=== PATIENT | female | born 1995 | race Caucasian/White ===

== ENCOUNTER 2018-04-14 12:28 | Inpatient (IN) ==
--- NOTE | 2018-04-14 13:32 | ED ---
HPI General Chief Complaint: Extremity Injury, Upper Stated Complaint: finger injury Time Seen by Provider: 04/14/18 13:11 History of Present Illness HPI narrative: The patient was seen and examined in the presence of the nurse. This patient was seen by Dr. Ron of hand surgery today. She has redness swelling discomfort centered about the PIP joint of the left fifth finger. Duration is 3 days. She was told to come to the emergency room and have surgery by Dr. Vanegas. She presents with a prescription detailing a preoperative workup and I have ordered that as Dr. Ron has recommended. Symptom severity is moderate. Her pain is worse with movement. She denies fever she denies any recent injury. 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 No alleviating factors. Related Data Home Medications Medication Instructions Recorded Confirmed No Known Home Medications 04/14/18 04/14/18 Allergies Allergy/AdvReac Type Severity Reaction Status Date / Time No Known Allergies Allergy Verified 04/14/18 13:27 Review of Systems ROS: all other systems reviewed are negative [facility] Medical History Medical History Patient denies medical problems (Acute) Surgical History Surgical History Hx of hand surgery (Acute) Hx of shoulder surgery (Acute) Social History Social History Second Hand Smoke Exposure: No Smoking Status: Never smoker How Often Do You Have a Drink Containing Alcohol: 2 to 4 times a month Recent Travel in [facility] within the Last 8 Weeks: No Recent Out of Country Travel within the Last 8 Weeks: No Immunization History Tetanus Immunization: <5 Years Exam Narrative Exam Narrative: GENERAL: Well-nourished, well-developed patient in no apparent distress. SKIN: Focused skin assessment reveals no rash and nodules. Skin is Warm and dry. HEAD: Atraumatic. Normocephalic. EYES: Pupils equal and round. No scleral icterus. No injection or drainage. ENT: No nasal bleeding or discharge. Mucous membranes pink and moist. NECK: Trachea midline. No JVD. CARDIOVASCULAR: Regular rate and rhythm. No murmur appreciated. RESPIRATORY: No accessory muscle use. Clear to auscultation. Breath sounds equal bilaterally. GASTROINTESTINAL: Abdomen soft, non-tender, nondistended. Hepatic and splenic margins not palpable. MUSCULOSKELETAL: Left fifth finger shows boutonniere deformity. There is a healed scar on the lateral aspect of the finger. There is erythema swelling and tenderness centered about the PIP joint. There is a central tiny area of purulence. No clubbing. No cyanosis. No edema. NEUROLOGICAL: Awake and alert. No obvious cranial nerve deficits. Motor grossly within normal limits. Normal speech. PSYCHIATRIC: Appropriate mood and affect; insight and judgment normal. Course Initial Documented Vital Signs Temperature 98.0 F 04/14/18 12:40 Pulse Rate 52 L 04/14/18 12:40 Respiratory Rate 18 04/14/18 12:40 Blood Pressure 114/62 04/14/18 12:40 Pulse Oximetry 99 04/14/18 12:40 Last Documented Vital Signs Temperature 98.0 F 04/14/18 12:40 Pulse Rate 50 L 04/14/18 18:47 Respiratory Rate 16 04/14/18 18:47 Blood Pressure 106/63 04/14/18 18:47 Pulse Oximetry 100 04/14/18 13:54 Medical Decision Making MDM Narrative Medical decision making narrative: 30-year-old female with looks to be an infectious process at the left fifth finger PIP joint. She has been seen by hand surgery and sent here to be evaluated by Dr. Vanegas. I have ordered the recommended preoperative workup which include labs and x-ray. CBC, sed rate, CRP with no acute findings. X-ray of the finger shows soft tissue swelling. Discussed with Dr. Vanegas who stated that she would come to the emergency department to evaluate patient. Dr. Vanegas will admit patient to her service. Patient will be started on vancomycin. She had an MRI of the hand ordered. MRI shows again soft tissue swelling. Patient was admitted under observation. Please see Dr. Vanegas's notes. Patient is agreeable to stay at this time however she did state that she may want to leave A and then come back for antibiotic therapy. Patient requested pain medication for pain in her finger after Dr. Vanegas aspirated fluid. Patient was given Percocet p.o. x1 dose. Medical Screen Exam Complete: Yes Emergency Medical Condition: Yes Differential Diagnosis Differential Diagnosis: Cellulitis versus abscess versus osteomyelitis versus other Lab Data Lab results reviewed: Yes I reviewed the patient's lab results. Result diagrams: 04/14/18 13:50 Lab Results 04/14/18 04/14/18 04/14/18 Range/Units 13:50 13:50 13:50 WBC 7.7 (4.0-11.0) th/mm3 RBC 4.36 (4.00-5.30) mil/mm3 Hgb 13.7 (11.6-15.3) gm/dL Hct 40.2 (35.0-46.0) % MCV 92.0 (80.0-100.0) fL MCH 31.4 (27.0-34.0) pg MCHC 34.1 (32.0-36.0) % RDW 12.7 (11.6-17.2) % Plt Count 148 L (150-450) th/mm3 MPV 10.7 (7.0-11.0) fL Neut % (Auto) 75.8 H (16.0-70.0) % Lymph % (Auto) 16.9 (9.0-44.0) % [place] % (Auto) 6.6 (0.0-8.0) % Eos % (Auto) 0.3 (0.0-4.0) % Baso % (Auto) 0.4 (0.0-2.0) % Neut # (Auto) 5.9 (1.8-7.7) th/mm3 Lymph # (Auto) 1.3 (1.0-4.8) th/mm3 [place] # (Auto) 0.5 (0.0-0.9) th/mm3 Eos # (Auto) 0.0 (0.0-0.4) th/mm3 Baso # (Auto) 0.0 (0.0-0.2) th/mm3 WBC Differential . Differential Comment Auto diff final ESR 2 (0-20) mm/hr C-Reactive Protein Less than 0.29 (0.00-0.30) mg/dL Beta HCG, Quant (0-5) mIU/mL 04/14/18 Range/Units 13:50 WBC (4.0-11.0) th/mm3 RBC (4.00-5.30) mil/mm3 Hgb (11.6-15.3) gm/dL Hct (35.0-46.0) % MCV (80.0-100.0) fL MCH (27.0-34.0) pg MCHC (32.0-36.0) % RDW (11.6-17.2) % Plt Count (150-450) th/mm3 MPV (7.0-11.0) fL Neut % (Auto) (16.0-70.0) % Lymph % (Auto) (9.0-44.0) % [place] % (Auto) (0.0-8.0) % Eos % (Auto) (0.0-4.0) % Baso % (Auto) (0.0-2.0) % Neut # (Auto) (1.8-7.7) th/mm3 Lymph # (Auto) (1.0-4.8) th/mm3 [place] # (Auto) (0.0-0.9) th/mm3 Eos # (Auto) (0.0-0.4) th/mm3 Baso # (Auto) (0.0-0.2) th/mm3 WBC Differential Differential Comment ESR (0-20) mm/hr C-Reactive Protein (0.00-0.30) mg/dL Beta HCG, Quant Less than 1 (0-5) mIU/mL Imaging Data Radiologist's impression: Finger X-Ray 04/14/18 13:26 CONCLUSION: 1. Nonspecific soft tissue swelling involving the fifth PIP joint. 2. Healed fracture involving the fifth proximal phalanx. 3. Single remaining internal fixation screw in the fifth proximal phalanx. Hand MRI 04/14/18 15:38 CONCLUSION: 1. Focal fluid collection in the soft tissues adjacent to the distal diametaphysis of the proximal phalanx of the fifth digit. No signal abnormality in the marrow of the fifth digit. There is also dorsal soft tissue swelling about the fifth digit adjacent to the proximal and mid phalanx. Discharge Plan Discharge Disposition Patient Disposition: ED Admit(ED Internal Use Only) Discharge Condition Condition: Stable Discharge Order Discharge Orders: ED Use Only Admit Order (Routine); Ordered 04/14/18 Ordered By: Taty Hlobrook Discharge Details Diagnosis: Cellulitis Physicians Team ED Provider: Tre Sam ED Midlevel Provider: Taty Holbrook Primary Care Provider: UNKNOWN, Attending Provider: Marielos Vanegas Other Providers: Dorothy,Krissy Status ED Status: Admitted Observation Patient
[2018-04-14 14:19] LABS: Baso % (Auto) 0.4 % (0.0-2.0); Eos % (Auto) 0.3 % (0.0-4.0); Hematocrit 40.2 % (35.0-46.0); Hemoglobin 13.7 gm/dL (11.6-15.3); Lymph # (Auto) 1.3 th/mm3 (1.0-4.8); Lymph % (Auto) 16.9 % (9.0-44.0); Mean Corpuscular HGB Conc 34.1 % (32.0-36.0); Mean Corpuscular Hemoglobin 31.4 pg (27.0-34.0); Mean Platelet Volume 10.7 fL (7.0-11.0); Mono # (Auto) 0.5 th/mm3 (0.0-0.9); Mono % (Auto) 6.6 % (0.0-8.0); Neut # (Auto) 5.9 th/mm3 (1.8-7.7); Neut % (Auto) 75.8 % (16.0-70.0); Platelet Count 148 th/mm3 (150-450); Red Blood Count 4.36 mil/mm3 (4.00-5.30); Red Cell Distribution Width 12.7 % (11.6-17.2); White Blood Count 7.7 th/mm3 (4.0-11.0)
--- NOTE | 2018-04-14 14:54 | XR ---
EXAM DATE: 04/14/2018 2:41 PM EST AGE/SEX: 22 years / Female INDICATIONS: Joint pain. Patient states she has had surgery to that finger before for a fracture fro m volleyball. Patient states it is painful, red, hot and throbbing. CLINICAL DATA: This is the patient's initial encounter. Patient reports that signs and symptoms have been present for 2 days and indicates a pain score of 10/10. MEDICAL/SURGICAL HISTORY: None. . Left 5th digit surgery over past 2 years. COMPARISON: [facility], XR FINGER 5TH DIGIT (MIN 2 VIEWS), LEFT, 12/06/2016. . FINDINGS: Today's examination is compared to the prior study. The prior study demonstrated an oblique fracture through the fifth proximal phalanx. On today's examination the fracture is healed. There is a single internal fixation screw remaining. There is diffuse soft tissue swelling at the PIP joint. No acute f racture or joint dislocation is demonstrated. No other radiopaque foreign bodies are demonstrated. CONCLUSION: 1. Nonspecific soft tissue swelling involving the fifth PIP joint. 2. Healed fracture involving the fifth proximal phalanx. 3. Single remaining internal fixation screw in the fifth proximal phalanx. Electronically signed by: Brad Jauregui MD Board Certified Radiologist 04/14/2018 2:53 PM EST
--- NOTE | 2018-04-14 16:54 | MR ---
EXAM DATE: 04/14/2018 4:38 PM EST AGE/SEX: 22 years / Female INDICATIONS: . Left 5th digit swelling and redness with no known injury. CLINICAL DATA: This is the patient's initial encounter. Patient reports that signs and symptoms have been present for 1 week and indicates a pain score of 5/10. MEDICAL/SURGICAL HISTORY: None. . shoulder surgery, left 5th digit of hand surgery COMPARISON: [facility], FINGER LEFT 5TH DIGIT MIN 2V, 04/14/2018. . TECHNIQUE: Multiplanar, multisequence MRI examination was performed without contrast. FINDINGS: Conventional radiographs demonstrate evidence of prior internal fixation with removal of hardware dis abdi one half of the fifth proximal phalanx with a residual internal fixation pin in the mid shaft of the proximal phalanx. There is a focal fluid collection on the palm are aspect of the distal one thir d of the proximal phalanx and moderate dorsal soft tissue thickening with T2 prolongation; this fluid collection measures 7 mm long and 4 mm deep.. There is T1 prolongation in the marrow of the distal o ne third of the proximal phalanx at site of prior surgery. No signal abnormality in the distal or mid dle phalanx. CONCLUSION: 1. Focal fluid collection in the soft tissues adjacent to the distal diametaphysis of the proximal p halanx of the fifth digit. No signal abnormality in the marrow of the fifth digit. There is also dors al soft tissue swelling about the fifth digit adjacent to the proximal and mid phalanx. Electronically signed by: Romeo Espinal MD Board Certified Radiologist 04/14/2018 4:53 PM EST
[2018-04-14] MEDS ORDERED: Acetaminophen 325 MG Tablet PO PRN (18:32)
[2018-04-14] MEDS: Vancomycin Inj 1,000 MG in Sodium Chlor 0.9% Inj 250 ML IV.SIG SCH (18:43)
--- NOTE | 2018-04-14 19:31 | P.HPOP ---
History of Present Illness Service: ORtho Primary Care Physician: UNKNOWN History of Present Illness: 22yF approximately 1 year s/p ORIF left 5th proximal phalanx fracture now approximately 2 months s/p hardware removal and tenolysis presented to office today with erythema left 5th PIP joint. Seen by my partner Dr Ron as I was in surgery at [place]. Patient reports 1 day of worsening erythema and swelling. Patient did have some mild erythema 2 weeks ago but refused oral antibiotics at that time. Denies paresthesias. Reports persistent stiffness. - Diagnosis (1) Cellulitis and abscess of hand Estimated Total Length of Stay (Days): 3 Review of Systems All other systems reviewed negative except as stated in HPI Constitutional: Denies anorexia, Denies body ache(s), Denies chills, Denies daytime sleepiness, Denies excessive sweating, Denies fatigue, Denies fever(s), Denies headache(s), Denies increased appetite, Denies lack of energy, Denies malaise, Denies night sweats, Denies weakness, Denies weight gain, Denies weight loss, Denies other Eyes: Denies blind spots, Denies blurry vision, Denies bulging eyes, Denies change in vision, Denies double vision, Denies discharge, Denies dry eyes, Denies floaters, Denies irritation, Denies itchy eyes, Denies loss of vision, Denies pain, Denies requires corrective lenses, Denies sensitivity to light, Denies other Ears, Nose, Mouth, and Throat: Denies abnormal hearing, Denies bleeding gums, Denies bad breath, Denies change in voice, Denies dental pain, Denies difficulty swallowing, Denies dizziness, Denies dry mouth, Denies ear discharge , Denies ear pain, Denies facial pain, Denies headache(s), Denies hearing loss, Denies hoarseness, Denies lip swelling, Denies nosebleed, Denies mouth lesions, Denies mouth pain, Denies nasal congestion, Denies nasal discharge, Denies nasal obstruction, Denies nasal trauma, Denies neck lump, Denies neck pain, Denies nose pain, Denies pain with swallowing, Denies poor balance, Denies post nasal drip, Denies ringing in the ears, Denies sinus pain, Denies sinus pressure , Denies sore throat, Denies throat swelling, Denies tongue swelling, Denies other Cardiovascular: Denies chest pain, Denies chest pain at rest, Denies chest pain with activity, Denies excessive sweating, Denies fainting, Denies fast heart rate, Denies foot swelling, Denies generalized swelling, Denies irregular heart rhythm, Denies leg pain with activity, Denies leg sores, Denies leg swelling, Denies lightheadedness, Denies radiating jaw, neck or arm pain, Denies rapid, pounding, or irregular heartbeat, Denies shortness of breath, Denies shortness of breath with activity, Denies shortness of breath when lying down, Denies shortness of breath causing sudden awakening, Denies slow heart rate, Denies other Respiratory: Denies change in phlegm color, Denies chest congestion, Denies cough, Denies coughing up blood, Denies excessive phlegm production, Denies pain on inspiration, Denies pain with cough, Denies shortness of breath, Denies shortness of breath with activity, Denies snoring, Denies stridor, Denies wheezing, Denies other Gastrointestinal: Denies abdominal pain, Denies belching, Denies black, tarry stools, Denies bloating, Denies bright, red blood in stools, Denies change in bowel habits, Denies constant urge to pass stool, Denies change in stools, Denies coffee ground vomit, Denies constipation, Denies cramping, Denies difficulty swallowing, Denies excessive passing of gas, Denies feeling full early, Denies heartburn, Denies incontinent of stools, Denies loose stools, Denies nausea, Denies pain with swallowing, Denies vomiting, Denies vomiting blood, Denies other Genitourinary: Denies abnormal periods, Denies abnormal vaginal bleeding, Denies absent period, Denies bleeding between periods, Denies blood in urine, Denies difficulty starting urination, Denies difficulty urinating, Denies dribbling after urination, Denies frequent nighttime urination, Denies genital itching, Denies genital lesions, Denies heavy periods, Denies hot flashes, Denies light periods, Denies nipple discharge, Denies painful intercourse, Denies painful periods, Denies painful urination, Denies pelvic pain, Denies prolapse symptoms, Denies sexual problems, Denies side pain, Denies urinary incontinence, Denies urinary urgency, Denies vaginal discharge, Denies vaginal dryness, Denies vaginal odor, Denies vaginal itching, Denies other Musculoskeletal: Reports joint pain, Reports joint swelling, Reports limited joint movement Skin/Breast: Denies acne, Denies bleeding lesions, Denies boil, Denies breast swelling, Denies breast skin changes, Denies breast pain, Denies breast lump, Denies change in breast shape, Denies change in hair, Denies change in skin color, Denies changing lesions, Denies dry skin, Denies excessive hair growth, Denies hair loss, Denies itching, Denies lesions, Denies nail changes, Denies new lesions, Denies nipple discharge, Denies non-healing lesions, Denies redness , Denies sensitivity to light, Denies rash, Denies skin pain, Denies skin ulcer , Denies sores, Denies stretch mota, Denies unusual bruising, Denies wounds, Denies yellowing of the skin, Denies other Neurologic: Denies abnormal hearing, Denies abnormal movements, Denies abnormal speech, Denies abnormal walking, Denies behavioral changes, Denies burning sensations, Denies confusion, Denies dizziness, Denies fainting, Denies frequent falls, Denies headache(s), Denies lack of coordination, Denies localized weakness, Denies loss of vision, Denies memory loss, Denies numbness, Denies other visual disturbances, Denies radiating pain, Denies restless legs, Denies convulsions, Denies seizure-like activity, Denies sensory deficit, Denies tingling, Denies tingling/numbness/burning sensations, Denies tremor(s), Denies unsteadiness, Denies weakness, Denies other Psychiatric: Denies abnormal sleep pattern, Denies anxiety, Denies behavioral changes, Denies change in appetite, Denies change in sex drive, Denies confusion , Denies depression, Denies difficulty concentrating, Denies hearing things others do not hear, Denies hopelessness, Denies irritability, Denies lack of enjoyment, Denies memory loss, Denies mood swings, Denies panic attacks, Denies paranoia, Denies seeing things others do not see, Denies sensing things others do not sense, Denies tactile hallucinations, Denies thoughts of hurting/killing others, Denies thoughts of hurting/killing yourself, Denies other Endocrine: Denies cold intolerance, Denies excessive sweating, Denies flushing, Denies heat intolerance, Denies increased hunger, Denies increased thirst, Denies increased urination, Denies rapid, pounding, or irregular heartbeat, Denies other Hematologic/Lymphatic: Denies easy bleeding, Denies easy bruising, Denies enlarged lymph nodes, Denies other Allergic/Immunologic: Denies GI upset with certain foods, Denies hives, Denies itchy eyes, Denies lip swelling, Denies seasonal runny nose, Denies throat swelling, Denies tongue swelling, Denies wheezing, Denies other PMFSH - History History Provided By: Patient - Medical History Medical History: Medical History (Last Updated 04/14/18 @ 20:33 by Marielos Vanegas MD) Patient denies medical problems (Acute) - Surgical History Surgical History: Surgical History (Last Reviewed 04/14/18 @ 20:33 by Marielos Vanegas MD) Hx of hand surgery (Acute) Hx of shoulder surgery (Acute) - Social History I have reviewed the patient's Social History: Yes - Tobacco History Second Hand Smoke Exposure: No Smoking Status: Never smoker - Alcohol History How Often Do You Have a Drink Containing Alcohol: 2 to 4 times a month - Travel History Recent Travel in the [place] Within the Last 8 Weeks: No Recent Travel Out of the Country Within the Last 8 Weeks: No - Immunization History Tetanus Immunization: <5 Years Medications and Allergies Active Medications: Active Medications Acetaminophen (Tylenol) 650 mg PO Q4H PRN PRN Reason: Temp > 100.4 Vancomycin HCl 1,000 mg/ (Sodium Chloride) 250 mls @ 250 mls/hr IV.SIG Q12H LUIS ENRIQUE Stop: 04/15/18 07:59 Ondansetron HCl (Zofran Inj) 4 mg IV.PUSH Q6H PRN PRN Reason: NAUSEA OR VOMITING Senna/Docusate Sodium (Isabel-Colace) 1 tab PO BID LUIS ENRIQUE Sennosides (Senokot) 17.2 mg PO Q12H PRN PRN Reason: Moderate Constipation Allergies Allergy/AdvReac Type Severity Reaction Status Date / Time No Known Allergies Allergy Verified 04/14/18 13:27 Home Medications Medication Instructions Recorded Confirmed Type No Known Home Medications 04/14/18 04/14/18 History Exam Vital signs: Vital Signs 04/14/18 12:40 04/14/18 13:54 Temperature 98.0 F Pulse Rate 52 L 53 L Respiratory Rate 18 16 Blood Pressure 114/62 110/62 Pulse Oximetry 99 100 Intake & Output 04/13/18 04/14/18 04/14/18 18:59 06:59 18:59 Weight 81.647 kg Narrative: Alert and oriented. Heart regular rate. Lungs clear to auscultation. Healed incision left small finger. Erythema left small finger. No pain with passive range of motion PIP joint. Flexed posture left small finger. <2 sec capillary refill , sitlt radial and ulnar sides. function intact fds/fdp. no pain along flexor tendon sheath Results - Labs Result Diagrams: 04/14/18 13:50 Labs: Laboratory Results - last 24 hr 04/14/18 04/14/18 04/14/18 13:50 13:50 13:50 WBC 7.7 RBC 4.36 Hgb 13.7 Hct 40.2 MCV 92.0 MCH 31.4 MCHC 34.1 RDW 12.7 Plt Count 148 L MPV 10.7 Neut % (Auto) 75.8 H Lymph % (Auto) 16.9 [place] % (Auto) 6.6 Eos % (Auto) 0.3 Baso % (Auto) 0.4 Neut # (Auto) 5.9 Lymph # (Auto) 1.3 [place] # (Auto) 0.5 Eos # (Auto) 0.0 Baso # (Auto) 0.0 WBC Differential . Differential Comment Auto diff final ESR 2 C-Reactive Protein Less than 0.29 Beta HCG, Quant 04/14/18 13:50 WBC RBC Hgb Hct MCV MCH MCHC RDW Plt Count MPV Neut % (Auto) Lymph % (Auto) [place] % (Auto) Eos % (Auto) Baso % (Auto) Neut # (Auto) Lymph # (Auto) [place] # (Auto) Eos # (Auto) Baso # (Auto) WBC Differential Differential Comment ESR C-Reactive Protein Beta HCG, Quant Less than 1 - Diagnostic results Imaging: Impressions Finger X-Ray 04/14/18 13:26 CONCLUSION: 1. Nonspecific soft tissue swelling involving the fifth PIP joint. 2. Healed fracture involving the fifth proximal phalanx. 3. Single remaining internal fixation screw in the fifth proximal phalanx. Hand MRI 04/14/18 15:38 CONCLUSION: 1. Focal fluid collection in the soft tissues adjacent to the distal diametaphysis of the proximal phalanx of the fifth digit. No signal abnormality in the marrow of the fifth digit. There is also dorsal soft tissue swelling about the fifth digit adjacent to the proximal and mid phalanx. Caprini VTE Risk Assessment Caprini Risk Assessment Model: Point Value = 1 Point Value = 2 Point Value = 3 Point Value = 5 Age 41-60 Minor surgery BMI > 25 kg/m2 Swollen legs Varicose veins or History of unexplained or recurrent spontaneous Oral contraceptives or hormone replacement Sepsis (< 1 month) Serious lung disease, including pneumonia (< 1 month) Abnormal pulmonary function Acute myocardial infarction Congestive heart failure (< 1 month) History of inflammatory bowel disease Medical patient at bed rest Age 61-74 Arthroscopic surgery Major open surgery (> 45 min) Laparoscopic surgery (> 45 min) Malignancy Confined to bed (> 72 hours) Immobilizing plaster cast Central venous access Age >= 75 History of VTE Family history of VTE Factor V Leiden Prothrombin [id number] Lupus anticoagulant Anticardiolipin antibodies Elevated serum homocysteine Heparin-induced thrombocytopenia Other congenital or acquired thrombophilia Stroke (< 1 month) Elective arthroplasty Hip, pelvis, or leg fracture Acute spinal cord injury (< 1 month) Prophylaxis Regimen: Total Risk Factor Score Risk Level Prophylaxis Regimen 0-1 Low Early ambulation 2 Moderate Order ONE of the following: *Sequential Compression Device (SCD) *Heparin 5000 units SQ BID 3-4 Higher Order ONE of the following medications: *Heparin 5000 units SQ TID *Enoxaparin/Lovenox 40 mg SQ daily (WT < 150 kg, CrCl > 30 mL/min) *Enoxaparin/Lovenox 30 mg SQ daily (WT < 150 kg, CrCl > 10-29 mL/min) *Enoxaparin/Lovenox 30 mg SQ BID (WT < 150 kg, CrCl > 30 mL/min) AND/OR *Sequential Compression Device (SCD) 5 or more Highest Order ONE of the following medications: *Heparin 5000 units SQ TID (Preferred with Epidurals) *Enoxaparin/Lovenox 40 mg SQ daily (WT < 150 kg, CrCl > 30 mL/min) *Enoxaparin/Lovenox 30 mg SQ daily (WT < 150 kg, CrCl > 10-29 mL/min) *Enoxaparin/Lovenox 30 mg SQ BID (WT < 150 kg, CrCl > 30 mL/min) AND *Sequential Compression Device (SCD) Assessment and Plan - Problem List (1) Cellulitis and abscess of hand Code(s): L03.119 - Cellulitis of unspecified part of limb; L02.519 - Cutaneous abscess of unspecified hand Status: Acute - Assessment and Plan 22yF approximately 1 year s/p ORIF left proximal phalanx now 2 months s/p hardware removal and tenolysis now 1 day history of erythema and swelling PIP joint. -ESR, CRP WNL -Aspiration small amount of fluid pending for culture -Admit for IV antibiotics and ID consult -MRI shows small amount of fluid volar to but not involving PIP joint but no osteomyelitis and no abscess dorsally per radiologist -Possible I&D in OR tonight vs AM depending on OR availability -Discussed with patient importance of compliance with antibiotics
[2018-04-14] MEDS ORDERED: Senna/Docusate Sodium 8.6/50 MG Tablet PO SCH (21:00)
[2018-04-15] MEDS: HYDROmorphone PF Inj 0.5 MG/0.5 ML Syringe IV.PUSH PRN ×3 (00:03→22:55)
[2018-04-15] MEDS: ceFAZolin 2 GM Premix Inj 2 GM/50 ML PIGGYBACK IV.SIG SCH ×4 (00:03→18:02)
[2018-04-15] MEDS ORDERED: Chlorhexidine Gluconate 2% 1 Pack (2 Cloths) TOPICAL ONE (06:28)
[2018-04-15] MEDS ORDERED: Sodium Chlor 0.9% Inj 500 ML IV.SIG SCH (07:00)
[2018-04-15] MEDS: Vancomycin Inj 1,000 MG in Sodium Chlor 0.9% Inj 250 ML IV.SIG SCH (07:00)
--- NOTE | 2018-04-15 11:36 | P.PNOP ---
Subjective Interval history: Patient reports improvement in pain and swelling after IV antibiotics. She did feel flushed with vancomycin Physical Exam Vital signs: Vital Signs 04/14/18 12:40 04/14/18 13:54 04/14/18 18:47 Temperature 98.0 F Pulse Rate 52 L 53 L 50 L Respiratory Rate 18 16 16 Blood Pressure 114/62 110/62 106/63 Pulse Oximetry 99 100 04/14/18 19:33 04/14/18 20:50 04/14/18 23:50 Temperature 97.9 F 97.2 F L Pulse Rate 48 L 55 L Respiratory Rate 18 17 16 Blood Pressure 106/52 L 100/58 L Pulse Oximetry 100 99 04/15/18 03:30 04/15/18 04:00 04/15/18 08:00 Temperature 97.6 F 96.8 F L Pulse Rate 50 L 60 Respiratory Rate 16 16 14 Blood Pressure 109/55 L 106/53 L Pulse Oximetry 100 96 04/15/18 08:20 Temperature Pulse Rate Respiratory Rate 14 Blood Pressure Pulse Oximetry Intake & Output 04/14/18 04/15/18 04/15/18 18:59 06:59 18:59 Intake Total 1350 / 1350 250 / 250 Balance 1350 / 1350 250 / 250 Weight 81.647 kg 84.7 kg Intake: IV 350 / 350 250 / 250 Vancomycin Inj 1,000 MG In NS 250 / 250 250 / 250 Inj 250 ML @ 250 mls/hr IV.SIG Q12H LUIS ENRIQUE Rx#:[id number] Ancef 2 GM Premix Inj 2 gm In 100 / 100 50 ml @ 100 mls/hr IV.SIG Q8H LUIS ENRIQUE Rx#:[id number] Oral 1000 / 1000 Other: # Voids 2 # Bowel Movements 0 Weight On Admission 83.5 kg - Routine Extremities Exam Comments: Improving erythema over finger, minimal pain with passive range of motion, pustule dorsally over PIP joint, sitlt radial and ulnar sides, <2 sec capillary refill Results - Labs CBC & Chem 7: 04/14/18 13:50 Laboratory Results - last 24 hr 04/14/18 04/14/18 04/14/18 13:50 13:50 13:50 WBC 7.7 RBC 4.36 Hgb 13.7 Hct 40.2 MCV 92.0 MCH 31.4 MCHC 34.1 RDW 12.7 Plt Count 148 L MPV 10.7 Neut % (Auto) 75.8 H Lymph % (Auto) 16.9 [place] % (Auto) 6.6 Eos % (Auto) 0.3 Baso % (Auto) 0.4 Neut # (Auto) 5.9 Lymph # (Auto) 1.3 [place] # (Auto) 0.5 Eos # (Auto) 0.0 Baso # (Auto) 0.0 WBC Differential . Differential Comment Auto diff final ESR 2 C-Reactive Protein Less than 0.29 Beta HCG, Quant 04/14/18 13:50 WBC RBC Hgb Hct MCV MCH MCHC RDW Plt Count MPV Neut % (Auto) Lymph % (Auto) [place] % (Auto) Eos % (Auto) Baso % (Auto) Neut # (Auto) Lymph # (Auto) [place] # (Auto) Eos # (Auto) Baso # (Auto) WBC Differential Differential Comment ESR C-Reactive Protein Beta HCG, Quant Less than 1 Microbiology 04/14/18 18:03 Tissue - Arm Gram Stain - Final - Imaging Impressions Finger X-Ray 04/14/18 13:26 CONCLUSION: 1. Nonspecific soft tissue swelling involving the fifth PIP joint. 2. Healed fracture involving the fifth proximal phalanx. 3. Single remaining internal fixation screw in the fifth proximal phalanx. Hand MRI 04/14/18 15:38 CONCLUSION: 1. Focal fluid collection in the soft tissues adjacent to the distal diametaphysis of the proximal phalanx of the fifth digit. No signal abnormality in the marrow of the fifth digit. There is also dorsal soft tissue swelling about the fifth digit adjacent to the proximal and mid phalanx. Assessment and Plan - Assessment and Plan 22yF approximately 1 year s/p ORIF left proximal phalanx now 2 months s/p hardware removal and tenolysis now 1 day history of erythema and swelling PIP joint. -ESR, CRP WNL -Aspiration small amount of fluid pending for culture -MRI shows small amount of fluid volar to but not involving PIP joint but no osteomyelitis and no abscess dorsally per radiologist -Still awaiting ID consult, recommended Vancomycin last night -Scheduled for OR at 9:30 this am but currently delayed due to traumas. Still awaiting OR for I&D -Discussed with patient importance of compliance with antibiotics. Patient states she would like to leave hospital today -Patient planning trip to [place] which I do not recommend at this time. Will see in office this week after discharge prior to planned trip
[2018-04-15] MEDS ORDERED: Glycopyrrolate Inj 1 MG/5 ML Syringe IV.PUSH ONE (13:27)
[2018-04-15] MEDS ORDERED: Ketorolac Inj 30 MG/ML (IVP) Vial IV.PUSH ONE (13:27)
[2018-04-15] MEDS ORDERED: Lidocaine PF 1% Inj 5 ML Syringe INFILTRATN ONE (13:27)
[2018-04-15] MEDS ORDERED: Neomycin/Polymyxin G.U. Irrigant 1 ML Ampul ONE ×2 (13:40→14:54)
[2018-04-15] MEDS ORDERED: Lidocaine 2% Inj 50 ML Vial ONE (13:43)
--- NOTE | 2018-04-15 13:56 | P.CONID ---
History of Present Illness Service: ID Consult date: 04/15/18 Requesting Physician: Marielos Vanegas Reason for Consult: L small finger Primary Care Provider: UNKNOWN History of Present Illness: 22 yo F with no past med history broke her L small finger playing voleyball required repair with hardware 2 yrs ago POst op uneventfully as far as infections but developped contracture and 2 mos ago some of the hardware was removed She was doing fine untill 3 days ago when she presented with swelling and redness over prox 5th finger knuckle SHe denies fever and chills She fluid from collection wwas aspirated Gstain negative clx P MR w/o osteo she is going to I+D today She still has residual hardware Review of Systems All other systems reviewed negative except as stated in HPI PMFSH - History History Provided By: Patient - Medical History Medical History: Medical History (Last Reviewed 04/15/18 @ 13:42 by Krissy De La Cruz MD) Patient denies medical problems (Acute) - Surgical History Surgical History: Surgical History (Last Reviewed 04/15/18 @ 13:42 by Krissy De La Cruz MD) Hx of hand surgery (Acute) Hx of shoulder surgery (Acute) - Social History I have reviewed the patient's Social History: Yes - Tobacco History Second Hand Smoke Exposure: No Tobacco Use In Past 30 Days: No Smoking Status: Never smoker - Alcohol History How Often Do You Have a Drink Containing Alcohol: 2 to 4 times a month - Substance Use History Substance History: No History of Abuse - Travel History Recent Travel in the [place] Within the Last 8 Weeks: No Recent Travel Out of the Country Within the Last 8 Weeks: No - Immunization History Tetanus Immunization: <5 Years Hx Influenza Vaccine This Season: No Medications and Allergies Active Medications: Active Medications Hydrocodone Bitart/Acetaminophen ([place] 5/325) 1 tab PO Q4H PRN PRN Reason: Acute Pain Diphenhydramine HCl (Benadryl) 25 mg PO Q6H PRN PRN Reason: ALLERGIC REACTION Last Admin: 04/15/18 06:28 Dose: 25 mg Hydromorphone HCl (Dilaudid Pf Inj) 0.5 mg IV.PUSH ONCE PRN PRN Reason: SEVERE BREAKTHROUGH PAIN Last Admin: 04/15/18 00:03 Dose: 0.5 mg Lactated Ringer's (Lr 1000 Ml Inj) 1,000 mls @ 30 mls/hr IV.SIG .Q24H LUIS ENRIQUE Stop: 04/16/18 06:29 Sodium Chloride (Ns Inj) 500 mls @ 30 mls/hr IV.SIG .Q10H LUIS ENRIQUE Ondansetron HCl (Zofran Inj) 4 mg IV.PUSH Q6H PRN PRN Reason: NAUSEA OR VOMITING Sennosides (Senokot) 17.2 mg PO Q12H PRN PRN Reason: Moderate Constipation Allergies Allergy/AdvReac Type Severity Reaction Status Date / Time No Known Allergies Allergy Verified 04/14/18 13:27 Home Medications Medication Instructions Recorded Confirmed Type No Known Home Medications 04/14/18 04/14/18 History Exam Vital signs: Vital Signs 04/14/18 13:54 04/14/18 18:47 04/14/18 19:33 Temperature Pulse Rate 53 L 50 L Respiratory Rate 16 16 18 Blood Pressure 110/62 106/63 Pulse Oximetry 100 04/14/18 20:50 04/14/18 23:50 04/15/18 03:30 Temperature 97.9 F 97.2 F L 97.6 F Pulse Rate 48 L 55 L 50 L Respiratory Rate 17 16 16 Blood Pressure 106/52 L 100/58 L 109/55 L Pulse Oximetry 100 99 100 04/15/18 04:00 04/15/18 08:00 04/15/18 08:20 Temperature 96.8 F L Pulse Rate 60 Respiratory Rate 16 14 14 Blood Pressure 106/53 L Pulse Oximetry 96 04/15/18 12:00 Temperature 97.7 F Pulse Rate 58 L Respiratory Rate 14 Blood Pressure 95/60 L Pulse Oximetry 97 Intake & Output 04/14/18 04/15/18 04/15/18 18:59 06:59 18:59 Intake Total 1350 / 1350 300 / 300 Balance 1350 / 1350 300 / 300 Weight 81.647 kg 84.7 kg Intake: IV 350 / 350 300 / 300 Vancomycin Inj 1,000 MG In NS 250 / 250 250 / 250 Inj 250 ML @ 250 mls/hr IV.SIG Q12H LUIS ENRIQUE Rx#:[id number] Ancef 2 GM Premix Inj 2 gm In 100 / 100 50 / 50 50 ml @ 100 mls/hr IV.SIG Q8H LUIS ENRIQUE Rx#:[id number] Oral 1000 / 1000 Other: # Voids 2 # Bowel Movements 0 Weight On Admission 83.5 kg - Constitutional no acute distress, average body habitus - Routine HEENT Exam Head: Present: normocephalic, atraumatic Eye: Present: EOMI, scleral injection ENT: Present: mucous membranes moist, oropharynx clear - Routine Neck Exam Absent: JVD, lymphadenopathy - Routine Respiratory Exam Present: CTA bilaterally. Absent: respiratory distress - Routine Cardiovascular Exam Present: RRR, S1, S2. Absent: murmur, gallop, rubs - Routine Abdominal Exam Present: soft, normoactive bowel sounds. Absent: tenderness, distended, organomegaly - Routine Extremities Exam Absent: cyanosis, clubbing, edema Comments: STATUS LOCALIS: R hand w/o edema, erythem except for middle and proximal phalnx of 5 th finger There is tense fluid collection over middle phalanx + erythem + tenderness well healed incision on prox phallanx no lymphedema or lymphadenopathy - Routine Skin Exam Present: warm. Absent: dry, rash - Routine Neurological Exam Present: alert, oriented X3, CN II-XII intact. Absent: sensory deficit, motor deficit - Routine Psychiatric Exam Present: normal affect, cooperative, good judgment Results - Labs CBC & Chem 7: 04/14/18 13:50 Labs: Laboratory Results - last 24 hr 04/14/18 04/14/18 04/14/18 13:50 13:50 13:50 WBC 7.7 RBC 4.36 Hgb 13.7 Hct 40.2 MCV 92.0 MCH 31.4 MCHC 34.1 RDW 12.7 Plt Count 148 L MPV 10.7 Neut % (Auto) 75.8 H Lymph % (Auto) 16.9 [place] % (Auto) 6.6 Eos % (Auto) 0.3 Baso % (Auto) 0.4 Neut # (Auto) 5.9 Lymph # (Auto) 1.3 [place] # (Auto) 0.5 Eos # (Auto) 0.0 Baso # (Auto) 0.0 WBC Differential . Differential Comment Auto diff final ESR 2 C-Reactive Protein Less than 0.29 Beta HCG, Quant Vancomycin Trough 04/14/18 04/15/18 13:50 11:35 WBC RBC Hgb Hct MCV MCH MCHC RDW Plt Count MPV Neut % (Auto) Lymph % (Auto) [place] % (Auto) Eos % (Auto) Baso % (Auto) Neut # (Auto) Lymph # (Auto) [place] # (Auto) Eos # (Auto) Baso # (Auto) WBC Differential Differential Comment ESR C-Reactive Protein Beta HCG, Quant Less than 1 Vancomycin Trough 12.2 H - Imaging Impressions Finger X-Ray 04/14/18 13:26 CONCLUSION: 1. Nonspecific soft tissue swelling involving the fifth PIP joint. 2. Healed fracture involving the fifth proximal phalanx. 3. Single remaining internal fixation screw in the fifth proximal phalanx. Hand MRI 04/14/18 15:38 CONCLUSION: 1. Focal fluid collection in the soft tissues adjacent to the distal diametaphysis of the proximal phalanx of the fifth digit. No signal abnormality in the marrow of the fifth digit. There is also dorsal soft tissue swelling about the fifth digit adjacent to the proximal and mid phalanx. Assessment and Plan - Plan Infecrted 5 th L finger, abscess, a/w hardware LIkely infected hardware Even w/o clinical or radiological osteo will Rx with prolonger abx use 2/2 retained hardware Suggest to remove hardware if feasible' fu clx will follow op report and cultures for further abxc rec anticipate 6 wks of IV abx op clx including AFB and fungal dw Dr Vanegas
[2018-04-15] MEDS ORDERED: *morphine SULFATE 4 MG/ML PERIprocedure ONLY ONE (15:59)
[2018-04-15] MEDS ORDERED: fentaNYL Citrate Inj 100 MCG/2 ML Ampul ONE (16:05)
--- NOTE | 2018-04-15 16:13 | P.PNOP ---
Subjective Interval history: Patient reports pain controlled. Attempted to talk to family postoperatively but no one in waiting room or room and sister didn't answer phone. Physical Exam Vital signs: Vital Signs 04/14/18 18:47 04/14/18 19:33 04/14/18 20:50 Temperature 97.9 F Pulse Rate 50 L 48 L Respiratory Rate 16 18 17 Blood Pressure 106/63 106/52 L Pulse Oximetry 100 04/14/18 23:50 04/15/18 03:30 04/15/18 04:00 Temperature 97.2 F L 97.6 F Pulse Rate 55 L 50 L Respiratory Rate 16 16 16 Blood Pressure 100/58 L 109/55 L Pulse Oximetry 99 100 04/15/18 08:00 04/15/18 08:20 04/15/18 12:00 Temperature 96.8 F L 97.7 F Pulse Rate 60 58 L Respiratory Rate 14 14 14 Blood Pressure 106/53 L 95/60 L Pulse Oximetry 96 97 Intake & Output 04/14/18 04/15/18 04/15/18 18:59 06:59 18:59 Intake Total 1350 / 1350 1300 / 1300 Output Total 5 / 5 Balance 1350 / 1350 1295 / 1295 Weight 81.647 kg 84.7 kg Intake: IV 350 / 350 300 / 300 Vancomycin Inj 1,000 MG In NS 250 / 250 250 / 250 Inj 250 ML @ 250 mls/hr IV.SIG Q12H LUIS ENRIQUE Rx#:[id number] Ancef 2 GM Premix Inj 2 gm In 100 / 100 50 / 50 50 ml @ 100 mls/hr IV.SIG Q8H LUIS ENRIQUE Rx#:[id number] Oral 1000 / 1000 Anesthesia Amount 1000 / 1000 Output: Estimated Blood Loss 5 / 5 Other: # Voids 2 # Bowel Movements 0 Weight On Admission 83.5 kg - Routine Extremities Exam Comments: Dressing in place, <2 sec capillary refill finger Results - Labs CBC & Chem 7: 04/14/18 13:50 Laboratory Results - last 24 hr 04/15/18 11:35 Vancomycin Trough 12.2 H Microbiology 04/14/18 18:03 Tissue - Arm Gram Stain - Final 04/14/18 18:03 Tissue - Arm Wound Culture - Preliminary Staphylococcus aureus - Imaging Impressions Hand MRI 04/14/18 15:38 CONCLUSION: 1. Focal fluid collection in the soft tissues adjacent to the distal diametaphysis of the proximal phalanx of the fifth digit. No signal abnormality in the marrow of the fifth digit. There is also dorsal soft tissue swelling about the fifth digit adjacent to the proximal and mid phalanx. Assessment and Plan - Problem List (1) Cellulitis and abscess of hand Code(s): L03.119 - Cellulitis of unspecified part of limb; L02.519 - Cutaneous abscess of unspecified hand Status: Acute - Assessment and Plan 22yF approximately 1 year s/p ORIF left proximal phalanx now 2 months s/p hardware removal and tenolysis now 1 day history of erythema and swelling PIP joint. Now POD0 s/p I&D left small finger, hardware removal, tenolysis -ESR, CRP WNL -Culture currently positive for staph, sensitivities pending. OR cultures pending -Discussed intraoperative findings with Dr De La Cruz. Recommend continued admission for IV antibiotics with possible discharge tomorrow or Tuesday on IV versus oral antibiotics. -Discussed with patient importance of compliance with antibiotics. Patient is scheduled to travel to [facility] but I recommend cancelling trip. -Continue to elevate hand
--- NOTE | 2018-04-15 17:48 | P.PNOP ---
Physical Exam Vital signs: Vital Signs 04/14/18 18:47 04/14/18 19:33 04/14/18 20:50 Temperature 97.9 F Pulse Rate 50 L 48 L Respiratory Rate 16 18 17 Blood Pressure 106/63 106/52 L Pulse Oximetry 100 04/14/18 23:50 04/15/18 03:30 04/15/18 04:00 Temperature 97.2 F L 97.6 F Pulse Rate 55 L 50 L Respiratory Rate 16 16 16 Blood Pressure 100/58 L 109/55 L Pulse Oximetry 99 100 04/15/18 08:00 04/15/18 08:20 04/15/18 12:00 Temperature 96.8 F L 97.7 F Pulse Rate 60 58 L Respiratory Rate 14 14 14 Blood Pressure 106/53 L 95/60 L Pulse Oximetry 96 97 04/15/18 15:55 04/15/18 16:00 04/15/18 16:15 Temperature 97.6 F Pulse Rate 47 L 49 L 50 L Respiratory Rate 16 15 15 Blood Pressure 118/63 111/60 114/63 Pulse Oximetry 100 100 100 04/15/18 16:30 Temperature 97.8 F Pulse Rate 48 L Respiratory Rate 16 Blood Pressure 116/65 Pulse Oximetry 100 Intake & Output 04/14/18 04/15/18 04/15/18 18:59 06:59 18:59 Intake Total 1350 / 1350 1300 / 1300 Output Total 5 / 5 Balance 1350 / 1350 1295 / 1295 Weight 81.647 kg 84.7 kg Intake: IV 350 / 350 300 / 300 Vancomycin Inj 1,000 MG In NS 250 / 250 250 / 250 Inj 250 ML @ 250 mls/hr IV.SIG Q12H LUIS ENRIQUE Rx#:[id number] Ancef 2 GM Premix Inj 2 gm In 100 / 100 50 / 50 50 ml @ 100 mls/hr IV.SIG Q8H LUIS ENRIQUE Rx#:[id number] Oral 1000 / 1000 Anesthesia Amount 1000 / 1000 Output: Estimated Blood Loss 5 / 5 Other: # Voids 2 # Bowel Movements 0 Weight On Admission 83.5 kg Results - Labs CBC & Chem 7: 04/14/18 13:50 Laboratory Results - last 24 hr 04/15/18 11:35 Vancomycin Trough 12.2 H Microbiology 04/14/18 18:03 Tissue - Arm Gram Stain - Final 04/14/18 18:03 Tissue - Arm Wound Culture - Preliminary Staphylococcus aureus Assessment and Plan - Problem List (1) Cellulitis and abscess of hand Code(s): L03.119 - Cellulitis of unspecified part of limb; L02.519 - Cutaneous abscess of unspecified hand Status: Acute - Assessment and Plan 22yF approximately 1 year s/p ORIF left proximal phalanx now 2 months s/p hardware removal and tenolysis now 1 day history of erythema and swelling PIP joint. Now POD0 s/p I&D left small finger, hardware removal, tenolysis -ESR, CRP WNL -Culture currently positive for staph, sensitivities pending. OR cultures pending -Discussed intraoperative findings with Dr De La Cruz. Recommend continued admission for IV antibiotics with possible discharge tomorrow or Tuesday on IV versus oral antibiotics. -Discussed with patient importance of compliance with antibiotics. Patient is scheduled to travel to [facility] but I recommend cancelling trip. -Continue to elevate hand Spoke with patient and family over phone. She states that she wants to go home tonight. I discussed case again with Dr De La Cruz and we both recommend continued admission for IV antibiotics and following sensitivities, possible discharge tomorrow with PICC line versus oral antibiotics. Patient states she may leave AMA. Discussed severity of infection and risks with patient including stiffness, osteomyelitis, sepsis, , amputation of finger and again recommend continued admission for Ab per ID. Also discussed with nurse.
--- NOTE | 2018-04-15 18:38 | MP ---
cc: Marielos Vanegas MD DATE OF OPERATION: 04/15/2018 PREOPERATIVE DIAGNOSIS: Abscess, left index finger. POSTOPERATIVE DIAGNOSES: 1. Abscess, left index finger involving extensor tendon sheath. 2. Retained hardware, left index finger. 3. Contracture, left small finger. PROCEDURES: 1. Incision and drainage of abscess involving extensor tendon sheath, left small finger. 2. Hardware removal, left small finger. 3. Tenolysis, left small finger. 4. Interpretation of fluoroscopy by the surgeon, left small finger. SURGEON: Marielos Vanegas MD ANESTHESIA: MAC. TOURNIQUET TIME: 57 minutes at 200 mmHg. SPECIMEN: Cultures. HARDWARE: One screw removed. INDICATIONS FOR PROCEDURE: Denisse Galvez is a 22-year-old female, approximately 1 year status post ORIF of a left small finger proximal phalanx fracture, now approximately 2 months status post the removal of all of the hardware except for 1 screw and tenolysis, who presented yesterday with concern for infection and swelling of the left small finger. She was evaluated and treatment options were discussed including IV antibiotics versus surgical intervention. She had some improvement on IV antibiotics overnight but still persistent swelling, and I recommended surgical intervention. Unfortunately, this was delayed multiple times due to traumas in the operating room. The patient elected to proceed with surgical intervention. Risks were explained which include but are not limited to wound complications, infection, persistent stiffness, pain, osteomyelitis, need for additional surgeries, sepsis, and she elected to proceed. DESCRIPTION OF PROCEDURE: The patient was identified in the preoperative holding and the correct extremity was marked. The patient was taken to the operating room. Anesthesia was induced. Left upper extremity was prepped and draped in normal sterile fashion. Tourniquet was inflated to 250 mmHg for 57 minutes. The prior incision was opened. There was purulence, which was sent for culture. This appeared mainly within the tendon sheath and not to involve the bone. The one remaining retained screw was removed and confirmed under fluoroscopy. Surprisingly, there was significant scarring of the extensor tendon again to the bone despite that the plate had been removed. This was then freed up, but similar to prior, there was still significant scarring of the PIP joint. Some PDS was used to tighten the central slip with some improvement in extension. Tourniquet was released. Hemostasis was obtained. The wound was closed with nylon. There was significant irritation of the skin from the abscess. Approximately 20 mL of 2% lidocaine without epinephrine was used to perform a digital block. The patient was placed into a soft dressing and awoken from anesthesia without complications. I recommend continued admission for IV antibiotics, follow up with infectious disease recommendations, and follow up in the office this week. The patient is planning to go out of town the end of this week, which I do not recommend at this time due to the infection in the finger. Marielos Vanegas MD SEJustin/eber , 06:07 PM , 06:14 PM [email or web address]
[2018-04-16] MEDS: ceFAZolin 2 GM Premix Inj 2 GM/50 ML PIGGYBACK IV.SIG SCH ×2 (02:18→09:36)
[2018-04-16] MEDS: HYDROmorphone PF Inj 0.5 MG/0.5 ML Syringe IV.PUSH PRN ×2 (08:31→13:12)
[2018-04-16 09:27] VITALS: RESP 18
[2018-04-16 12:54] VITALS: BP 118/70; PULSE 60; TEMP 98.3; O2SAT 100
--- NOTE | 2018-04-16 14:32 | P.PNID ---
Subjective Remarks: doing well sp I+D c dw Dr Vanegas: s/p 1. Incision and drainage of abscess involving extensor tendon sheath, left small finger. 2. Hardware removal, left small finger. 3. Tenolysis, left small finger. co vaginal yeast infection developped when abx were started Antibiotics: cefazolin Allergies/Adverse Reactions: Allergies No Known Allergies Allergy (Verified 04/14/18 13:27) Objective Vital Signs 04/15/18 15:55 04/15/18 16:00 04/15/18 16:05 Temperature 97.6 F Pulse Rate 47 L 49 L Respiratory Rate 16 15 16 Blood Pressure 118/63 111/60 Pulse Oximetry 100 100 04/15/18 16:15 04/15/18 16:30 04/15/18 20:00 Temperature 97.8 F 97.4 F L Pulse Rate 50 L 48 L 50 L Respiratory Rate 15 16 16 Blood Pressure 114/63 116/65 103/55 L Pulse Oximetry 100 100 100 04/16/18 00:00 04/16/18 04:00 04/16/18 07:25 Temperature 97.6 F 97.4 F L 98 F Pulse Rate 49 L 50 L 55 L Respiratory Rate 16 16 18 Blood Pressure 109/65 103/55 L 119/56 L Pulse Oximetry 48 L 100 99 04/16/18 12:00 Temperature 98.3 F Pulse Rate 60 Respiratory Rate 18 Blood Pressure 118/70 Pulse Oximetry 100 Intake & Output 04/15/18 04/16/18 04/16/18 18:59 06:59 18:59 Intake Total 1350 / 1350 530 / 530 40 / 40 Output Total 5 / 5 Balance 1345 / 1345 530 / 530 40 / 40 Weight 92.7 kg Intake: IV 350 / 350 50 / 50 40 / 40 Vancomycin Inj 1,000 MG In NS 250 / 250 Inj 250 ML @ 250 mls/hr IV.SIG Q12H LUIS ENRIQUE Rx#:[id number] Ancef 2 GM Premix Inj 2 gm In 100 / 100 50 / 50 40 / 40 50 ml @ 200 mls/hr IV.SIG Q8H LUIS ENRIQUE Rx#:[id number] Oral 0 / 0 480 / 480 Anesthesia Amount 1000 / 1000 Output: Estimated Blood Loss 5 / 5 Other: # Voids 2 3 Date of Last Bowel Movement 04/14/18 04/14/18 04/14/18 18:03 Tissue - Arm Gram Stain - Final 04/14/18 18:03 Tissue - Arm Wound Culture - Final Staphylococcus aureus 04/15/18 14:37 Wound - Finger Fungal Smear - Final No fungal elements seen 04/15/18 14:37 Wound - Finger Fungal Culture - Pending 04/15/18 14:37 Wound - Finger Gram Stain - Final 04/15/18 14:37 Wound - Finger Wound Culture - Pending 04/15/18 14:10 Wound - Finger Gram Stain - Final 04/15/18 14:10 Wound - Finger Wound Culture - Pending 04/15/18 14:10 Wound - Finger Fungal Smear - Final No fungal elements seen 04/15/18 14:10 Wound - Finger Fungal Culture - Pending 04/15/18 14:37 Wound - Finger Acid Fast Bacilli Smear - Pending 04/15/18 14:37 Wound - Finger Mycobacterial Culture - Pending 04/15/18 14:10 Wound - Finger Acid Fast Bacilli Smear - Pending 04/15/18 14:10 Wound - Finger Mycobacterial Culture - Pending 04/14/18 12:03 Tissue - Arm Fungal Smear - Pending 04/14/18 12:03 Tissue - Arm Fungal Culture - Pending 04/15/18 12:03 Tissue - Arm Acid Fast Bacilli Smear - Pending 04/15/18 12:03 Tissue - Arm Mycobacterial Culture - Pending Lab - Hematology Results 04/14/18 04/14/18 13:50 13:50 WBC 7.7 RBC 4.36 Hgb 13.7 Hct 40.2 MCV 92.0 MCH 31.4 MCHC 34.1 RDW 12.7 Plt Count 148 L MPV 10.7 Neut % (Auto) 75.8 H Lymph % (Auto) 16.9 Lyon % (Auto) 6.6 Eos % (Auto) 0.3 Baso % (Auto) 0.4 Neut # (Auto) 5.9 Lymph # (Auto) 1.3 Lyon # (Auto) 0.5 Eos # (Auto) 0.0 Baso # (Auto) 0.0 WBC Differential . Differential Comment Auto diff final ESR 2 Lab - Chemistry Results 04/14/18 04/14/18 13:50 13:50 C-Reactive Protein Less than 0.29 Beta HCG, Quant Less than 1 Imaging: ITS Impressions Finger X-Ray 04/14/18 13:26 CONCLUSION: 1. Nonspecific soft tissue swelling involving the fifth PIP joint. 2. Healed fracture involving the fifth proximal phalanx. 3. Single remaining internal fixation screw in the fifth proximal phalanx. Hand MRI 04/14/18 15:38 CONCLUSION: 1. Focal fluid collection in the soft tissues adjacent to the distal diametaphysis of the proximal phalanx of the fifth digit. No signal abnormality in the marrow of the fifth digit. There is also dorsal soft tissue swelling about the fifth digit adjacent to the proximal and mid phalanx. Physical Exam: GENERAL: NAD SKIN: Warm and dry. no rash MUSCULOSKELETAL: dressing in place L hand Assessment and Plan - Plan Infected 5 th L finger, abscess, a/w hardware, MSSA campbell S - sp I+D, pin removal - pt declined IV abx Vaginal yeast infection Rx with dicloxaciilin x 4 weeks Pt was counselled on the need of IV abx for her type of infection but she declined. She shows understanding that oral abx might not work as well as IV and she will be followed by Dr Vanegas and in case of failure will convert to IV Fluconazol 150 mg po x 1 repeat if needed in 3 days OK to sd home farzad Vanegas
[2018-04-16] MEDS ORDERED: Fluconazole 100 MG Tablet PO ONE (15:00)
== END 2018-04-16 15:02 | disposition home or self-care (01) | DRG 496 ==
LOC: NEDA 12:28 → NEPD 12:28 → N04 20:54 → NEDA 20:55
PROVIDERS: ADMIT Orthopaedic Surgery; ATTEND Orthopaedic Surgery
CPT/HCPCS: 73140; 73218; 80202; 84702; 85025; 85651; 85652; 86140; 86403; 87015; 87070; 87102; 87116; 87147; 87186; 87205; 87206; 99285; J0690; J1100; J1170; J1885; J2001; J2060; J2250; J2270; J2405; J2704; J3010; J3370; J7050; J7120